=== PATIENT | female | born 2000 | race Caucasian/White ===

== ENCOUNTER 2022-02-06 15:14 | Emergency (ER) | payer MEDICAID, OTHER ==
[2022-02-06] MEDS ORDERED: levETIRAcetam 500 MG TAB ONE (16:07)
== END 2022-02-06 16:20 | disposition home or self-care (01) ==
LOC: MADERS 15:14 → MERGE 15:14 → MADERS 16:20
DX: G40.909 Epilepsy, unspecified, not intractable, without status epilepticus (principal); Z79.899 Other long term (current) drug therapy
CPT/HCPCS: 36416; 99284